=== PATIENT | female | born 1965 | race Caucasian/White ===

== ENCOUNTER 2017-01-06 07:54 | Inpatient (IN) | payer OTHER ==
[2017-01-03 13:39] VITALS: BP 134/82
[~2017-01-06] VITALS: Ht 160 cm; Wt 88.3 kg
[~2017-01-06 07:54] MED LIST: BUPIVACAINE/PF 0.5% ONE; EPINEPHRINE 1 MG/ML, 1ML ONE; LEVO150T PO
[2017-01-06] MEDS ORDERED: LACTATED RINGERS 1,000 ML IV SCH (08:23)
[2017-01-06 08:30] LABS: HCG UR LOT HCG7030192
[2017-01-06] MEDS ORDERED: LIDOCAINE 1%, 2ML ONE (08:30)
[2017-01-06] MEDS ORDERED: LIDOCAINE 1%, 2ML SQ PRN (08:30)
[2017-01-06 08:33] LABS: HCG UR OBC PASS
[2017-01-06] MEDS ORDERED: MIDAZOLAM 1 MG/ML, 2ML ONE (09:00)
[2017-01-06] MEDS ORDERED: FENTANYL PF 100 MCG/2ML ONE ×4 (09:00→12:00)
[2017-01-06] MEDS ORDERED: DEXAMETHASONE 4 MG/ML, 1ML ONE (09:01)
[2017-01-06] MEDS ORDERED: SUCCINYLCHOLINE 20 MG/ML, 10ML ONE (09:01)
[2017-01-06] MEDS ORDERED: ONDANSETRON 2MG/ML, 2ML ONE (09:01)
[2017-01-06] MEDS ORDERED: PROPOFOL 10 MG/ML, 20ML ONE (09:01)
[2017-01-06] MEDS ORDERED: LIDOCAINE-MPF 2% ,5ML ONE (09:01)
[2017-01-06] MEDS ORDERED: PHENYLEPHRINE 10 MG/ML ONE (09:25)
[2017-01-06] MEDS ORDERED: ACETAMINOPHEN 325 MG TABLET PO PRN ×2 (10:00→14:00)
[2017-01-06] MEDS ORDERED: DIAZEPAM 5 MG/ML, 2ML IVPush PRN (10:00)
[2017-01-06] MEDS ORDERED: ALBUTEROL/IPRATROPIUM 2.5MG/0.5MG, 3 ML NPPB PRN (10:00)
[2017-01-06] MEDS ORDERED: ONDANSETRON 2MG/ML, 2ML IVPush PRN (10:00)
[2017-01-06] MEDS ORDERED: MIDAZOLAM 1 MG/ML, 2ML IV PRN (10:00)
[2017-01-06] MEDS ORDERED: MEPERIDINE/PF 25MG/0.5ML IVPush PRN (10:00)
[2017-01-06] MEDS ORDERED: hydrALAzine 20 MG/ML, 1ML IV PRN ×2 (10:00→14:00)
[2017-01-06] MEDS ORDERED: PROMETHAZINE 25 MG/ML, 1ML IV PRN (10:00)
[2017-01-06] MEDS ORDERED: LABETALOL 5MG/ML, 20ML IV PRN (10:00)
[2017-01-06] MEDS ORDERED: HYDROmorphone 1 MG/ML, 1ML IV PRN (10:00)
[2017-01-06] MEDS ORDERED: LIDOCAINE GEL 2%, 5ML ONE (10:01)
[2017-01-06] MEDS ORDERED: OXYcodone 5 MG/5 ML ORAL.SOL UDC ONE ×2 (11:36→12:20)
[2017-01-06] MEDS ORDERED: ACETAMINOPHEN 650 MG/20.3 ML UDC ONE (11:36)
[2017-01-06] MEDS: FENTANYL PF 100 MCG/2ML IV PRN ×4 (11:38→12:19)
[2017-01-06] MEDS: OXYcodone 5 MG/5 ML ORAL.SOL UDC PO PRN ×2 (11:39→12:21)
[2017-01-06 13:10] VITALS: BP 117/75
[2017-01-06] MEDS ORDERED: ACETAMINOPHEN 650 MG SUPP PR PRN (14:00)
[2017-01-06] MEDS: POTASSIUM CHLORIDE 20 MEQ in D5%-0.45% NACL 1,000 ML IV SCH (14:26)
[2017-01-06] MEDS: CALCIUM/VITAMIN D3 250-125 TABLET PO SCH ×2 (14:28→22:47)
[2017-01-06 16:00] VITALS: BP 110/70
[2017-01-06] MEDS: HYDROcodone/APAP 5/325 TABLET PO PRN (20:06)
[2017-01-06 20:12] VITALS: BP 112/67
[2017-01-06] MEDS: SODIUM CHLORIDE FLUSH 10ML SYR IVF SCH (21:00)
[2017-01-07 00:13] VITALS: BP 94/57
[2017-01-07] MEDS: POTASSIUM CHLORIDE 20 MEQ in D5%-0.45% NACL 1,000 ML IV SCH ×3 (02:35→23:00)
[2017-01-07 04:28] VITALS: BP 98/61
[2017-01-07 04:53] LABS: PTH INTACT INTERPRETATION ** Comment **
[2017-01-07 06:21] LABS: PARATHYROID HORMONE INTACT < 2.5 pg/mL (14-72)
[2017-01-07] MEDS: LEVOTHYROXINE 150 MCG TABLET PO SCH (08:07)
[2017-01-07] MEDS: SODIUM CHLORIDE FLUSH 10ML SYR IVF SCH ×2 (09:00→21:00)
[2017-01-07 10:13] VITALS: BP 123/74
[2017-01-07] MEDS: CALCIUM/VITAMIN D3 250-125 TABLET PO SCH ×3 (10:31→20:56)
[2017-01-07] MEDS: CALCITRIOL 0.5 MCG CAPSULE PO SCH ×2 (10:31→20:56)
[2017-01-07] MEDS: HYDROcodone/APAP 5/325 TABLET PO PRN ×3 (10:33→22:53)
[2017-01-07] MEDS ORDERED: CALCIUM GLUCONATE 9.2 MEQ in SODIUM CHLORIDE 0.9% 100 ML IV ONE (13:00)
[2017-01-07 15:21] VITALS: BP 107/70
[2017-01-07 19:55] VITALS: BP 113/72
[2017-01-08 03:32] VITALS: BP 95/61
[2017-01-08] MEDS: LEVOTHYROXINE 150 MCG TABLET PO SCH (06:25)
[2017-01-08 07:25] VITALS: BP 105/66
[2017-01-08] MEDS ORDERED: CALCIUM GLUCONATE 9.2 MEQ in SODIUM CHLORIDE 0.9% 100 ML IV ONE (08:00)
[2017-01-08] MEDS: CALCITRIOL 0.5 MCG CAPSULE PO SCH (08:52)
[2017-01-08] MEDS: SODIUM CHLORIDE FLUSH 10ML SYR IVF SCH (08:55)
[2017-01-08] MEDS ORDERED: CALCIUM/VITAMIN D3 250-125 TABLET PO SCH (09:00)
[2017-01-08] MEDS: POTASSIUM CHLORIDE 20 MEQ in D5%-0.45% NACL 1,000 ML IV SCH (10:13)
[2017-01-08] MEDS ORDERED: HYDR-3240 PO (13:39)
[2017-01-08] MEDS ORDERED: CALC-118 PO (13:40)
[2017-01-08] MEDS ORDERED: CALC0.5C PO (13:41)
[2017-01-08 14:51] VITALS: BP 108/74
== END 2017-01-08 15:05 | disposition home or self-care (01) | DRG 627 ==
LOC: OUT 07:54 → 4NOR 13:13 → OUT 13:54 → 4NOR 01-07 21:56
PROVIDERS: ADMIT Surgery; ATTEND Surgery
PROC: 4A11X4G Monitoring of Peripheral Nervous Electrical Activity, Intraoperative, External Approach (ICD-10-PCS; 2017-01-06)
PROC: 0GTK0ZZ Resection of Thyroid Gland, Open Approach (ICD-10-PCS; principal; 2017-01-06 09:45)
DX: E04.2 Nontoxic multinodular goiter (principal); E83.51 Hypocalcemia; E03.9 Hypothyroidism, unspecified
CPT/HCPCS: 36415; 81025; 82306; 82310; 83735; 83970; 88307; 88311; J0171; J0610; J1100; J2250; J2405; J2704; J3010; J3480; J3490; C1760; J0330; J2370; J7120